=== PATIENT | male | born 1990 | race Caucasian/White ===

== ENCOUNTER 2018-06-11 12:36 | Emergency (ER) | payer OTHER ==
[2018-06-11 12:50] VITALS: RESP 18
--- NOTE | 2018-06-11 13:42 | ED PDOC ---
HPI: Chest Pain Time Seen by Provider: 06/11/18 13:09 Chief Complaint (Nursing): Chest Pain Chief Complaint (Provider): c/o abdominal pain History Per: Patient History/Exam Limitations: no limitations Onset/Duration Of Symptoms: Days Quality: Sharp, Pressure Associated Symptoms: Nausea Modifying Factors: None Exacerbating Factors: Movement, Deep Breathing Alleviating Factors: Leaning Foreward Additional Complaint(s): Pt. came in c/o right shoulder/chest pain s/p weight training. pt. also c/o nausea. Pain described as sharp, comes and goes, radiates around right chest and right side of abdomen, rated 6/10 and no meds for relief. Pain is worth with inspiration. last meal in am. Past Medical History Reviewed: Vital Signs Vital Signs: Last Vital Signs Temp 98.0 F 06/11/18 12:48 Pulse 89 06/11/18 12:48 Resp 18 06/11/18 12:48 BP 171/114 H 06/11/18 12:48 Pulse Ox 98 06/11/18 12:48 NEIL Report Viewed: Yes - Medical History PMH: No Chronic Diseases Denies: Chronic Kidney Disease - Surgical History Surgical History: No Surg Hx - Family History Family History: States: No Known Family Hx - Living Arrangements Living Arrangements: With Family - Social History Current smoker - smoking cessation education provided: No Ex-Smoker (has not smoked in the last 12 months): No Alcohol: Occasional Drugs: Denies - Immunization History Hx Tetanus Toxoid Vaccination: Yes Hx Influenza Vaccination: No Hx Pneumococcal Vaccination: No - Allergies Allergies/Adverse Reactions: Allergies Allergy/AdvReac Type Severity Reaction Status Date / Time No Known Allergies Allergy Verified 06/11/18 12:48 SOL Risk Score for UA/NSTEMI - SOL Risk Score Age > 64: NO 3 or more CAD Risk Factors: NO Known CAD (Stenosis greater than 50%): NO Aspirin use in past 7 days: NO Severe Angina: NO EKG ST changes greater than 0.5mm: NO Positive Cardiac Marker: NO SOL Score: 0 Risk %: 5% Review of Systems Cardiovascular: Positive for: Chest Pain Respiratory: Positive for: Shortness of Breath Gastrointestinal: Positive for: Nausea, Abdominal Pain Physical Exam - Reviewed Vital Signs Reviewed: Yes - Physical Exam Appears: Positive for: Well, Uncomfortable Head Exam: Positive for: ATRAUMATIC, NORMAL INSPECTION, NORMOCEPHALIC Skin: Positive for: Normal Color Eye Exam: Positive for: Normal appearance ENT: Positive for: Normal ENT Inspection Neck: Positive for: Normal Cardiovascular/Chest: Positive for: Regular Rate, Rhythm Respiratory: Positive for: Normal Breath Sounds Gastrointestinal/Abdominal: Positive for: Soft, Tenderness (ruq tenderness) Back: Positive for: Normal Inspection Extremity: Positive for: Normal ROM Neurological/Psych: Positive for: Awake, Alert (nl gait.) - Laboratory Results Result Diagrams: 06/11/18 13:55 06/11/18 13:55 - ECG ECG: Positive for: Interpreted By Me ECG Rhythm: Positive for: Sinus Rhythm Interpretation Of ECG: nsr at 83 bpm, no st elevation, nl axis. O2 Sat by Pulse Oximetry: 98 - Radiology X-Ray: Interpreted by Mo X-Ray Interpretation: No Acute Disease - Progress ED Course And Treament: us: no evidence of gallstones repeat respiratory exam: cta b/l repeat abdomen: soft, nt. pt. tolerating po pt. advised to use motrin for pain Disposition - Clinical Impression Clinical Impression: Chest wall pain - Patient ED Disposition Is Patient to be Admitted: No - Disposition Disposition: Routine/Home Disposition Time: 15:57 Condition: GOOD Instructions: Costochondritis
--- NOTE | 2018-06-11 14:02 | RAD ---
Date of service: 06/11/2018 HISTORY: Abdominal pain COMPARISON: No prior. TECHNIQUE: Chest PA and lateral FINDINGS: LUNGS: Poor inspiration with low lung volumes common crowded bronchovascular markings and minor bibasilar atelectasis PLEURA: No significant pleural effusion identified. No pneumothorax apparent. CARDIOVASCULAR: No aortic atherosclerotic calcification present. Normal cardiac size. No pulmonary vascular congestion. OSSEOUS STRUCTURES: No significant abnormalities. VISUALIZED UPPER ABDOMEN: Normal. OTHER FINDINGS: None. IMPRESSION: Poor inspiration with low lung volumes common crowded bronchovascular markings and minor bibasilar atelectasis
[2018-06-11 14:20] LABS: ALB/GLOB RATIO 1.3 (1.0-2.1); ALT/SGPT 49 U/L (21-72); AMYLASE 173 U/L (30-110); AST/SGOT 36 U/L (17-59); BLOOD UREA NITROGEN 19 mg/dl (9-20); CALCIUM 9.8 mg/dL (8.4-10.2); GFR NON-AFRICAN AMERICAN > 60; LIPASE 28 U/L (23-300)
[2018-06-11 14:25] LABS: BASO % 0.2 % (0.0-2.0); EOS % 0.2 % (0.0-4.0); LYMPH # 1.5 K/uL (1.0-4.3); LYMPH % 9.7 % (20.0-40.0); MEAN CELL VOLUME 85.6 fl (80.0-94.0); MEAN CORPUSCULAR HGB CONC 32.7 g/dL (33.0-37.0); MEAN PLATELET VOLUME 8.5 fl (7.2-11.7); MONO % 6.8 % (0.0-10.0); NEUT # 12.5 K/uL (1.8-7.0); NEUT % 83.1 % (50.0-75.0); NRBC % 0.1 % (0.0-0.0); PLATELET COUNT 283 K/uL (130-400); RBC 5.71 Mil/uL (4.40-5.90); RED CELL DISTRIBUTION WIDTH 15.1 % (11.5-14.5); WHITE BLOOD COUNT 15.1 K/uL (4.8-10.8)
[2018-06-11 14:38] LABS: URINE BILIRUBIN NEGATIVE (NEGATIVE); URINE BLOOD NEGATIVE (NEGATIVE); URINE CLARITY SLIGHTY-CLOUDY (Clear); URINE COLOR YELLOW (YELLOW); URINE GLUCOSE (UA) NEG (NEGATIVE); URINE LEUKOCYTE ESTERASE NEG Leu/uL (Negative); URINE PROTEIN NEGATIVE (NEGATIVE)
--- NOTE | 2018-06-11 15:20 | US ---
Date of service: 06/11/2018 HISTORY: abdominal pain COMPARISON: None. TECHNIQUE: Sonographic evaluation of the right upper quadrant of the abdomen. FINDINGS: LIVER: Measures 16.8 cm in length. Hepatopedal blood flow. Fatty infiltration manifest ultrasonographically as increased echogenicity of the liver parenchyma. No mass. No intrahepatic bile duct dilatation. GALLBLADDER: Unremarkable. No gallstones. COMMON BILE DUCT: Measures 2.2 mm. No stones. No dilatation. PANCREAS: Obscured by overlying bowel gas. Non diagnostic assessment of the pancreas. RIGHT KIDNEY: Measures 5.5 x 10.5 cm in length. Normal echogenicity. No calculus, mass, or hydronephrosis. AORTA: No aneurysmal dilatation. IVC: Unremarkable. OTHER FINDINGS: None . IMPRESSION: No acute findings related to/ accounting for the clinical presentation. Additional benign and/or incidental findings described above.
[2018-06-11 15:29] LABS: ANISOCYTOSIS SLIGHT; LYMPHOCYTE 14 % (20-50); MONOCYTE 6 % (0-10); MYELOCYTE 1 % (0-0); NEUTROPHIL 79 % (42-75); PLATELET ESTIMATE NORMAL (NORMAL); TOTAL CELLS COUNTED 100
[2018-06-11 16:12] VITALS: BP 153/108; PULSE 85; TEMP 98.4; O2SAT 99
== END 2018-06-11 16:02 | disposition home or self-care (01) ==
LOC: H.ER 12:36
DX: R07.89 Other chest pain (principal)
CPT/HCPCS: 71046; 76705; 80053; 81003; 82150; 83690; 85025; 96374; 96375; 99284; J1885; J2405